=== PATIENT | female | born 1935 | race Caucasian/White ===

== ENCOUNTER 2019-08-16 21:10 | Emergency (ER) | payer OTHER, MEDICARE ==
[2019-08-16 22:32] LABS: Absolute Lymphocytes (CBC) 1.3 K/uL (0.7-4.9); Basophils % 0.8 % (0-1.3); Hematocrit 39.8 % (36.0-45.0); Lymphocytes % 16.2 % (15.3-44.8); MPV 9.4 fL (7.6-11.3); RBC Red Blood Cell Count 4.09 M/uL (3.86-4.86)
[2019-08-16 22:39] LABS: Potassium 4.1 mmol/L (3.5-5.1)
--- NOTE | 2019-08-16 23:03 | ER ---
Nurse's Notes [facility] Name: Mercy Goins Age: 84 yrs Sex: Female : 1935 Arrival Date: 08/16/2019 Time: 21:12 Bed 17 Private MD: Diagnosis: Cough Presentation: 08/16 21:17 Presenting complaint: states: "She's been coughing up phlegm since 7 this aj1 afternoon and it has not stopped since, and its really thick" Denies fever. Transition of care: patient was not received from another setting of care. Onset of symptoms was August 16, 2019. Risk Assessment: Do you want to hurt yourself or someone else? Patient reports no desire to harm self or others. Initial Sepsis Screen: Does the patient meet any 2 criteria? No. Patient's initial sepsis screen is negative. Does the patient have a suspected source of infection? Yes: Productive cough/pneumonia. Care prior to arrival: None. 21:17 Method Of Arrival: Ambulatory aj1 21:17 Acuity: MARCELA 3 aj1 Triage Assessment: 21:20 General: Appears in no apparent distress. comfortable, Behavior is calm, cooperative, aj1 appropriate for age. Pain: Denies pain. Neuro: Level of Consciousness is awake, alert, obeys commands. Cardiovascular: Patient's skin is warm and dry. Respiratory: Reports cough that is productive, Airway is patent Respiratory effort is even, unlabored, Respiratory pattern is regular, symmetrical. Historical: - Allergies: 21:20 No Known Allergies; aj1 - Home Meds: 21:20 Carbidopa-Levodopa Oral [Active]; amantadine HCl Oral [Active]; Clonazepam Oral aj1 [Active]; Fosamax Oral [Active]; - PMHx: 21:20 Parkinsons; Deep brain stimulator; breast cancer; aj1 - PSHx: 21:20 Mastectomy; aj1 - Immunization history:: Adult Immunizations up to date. - Social history:: Smoking status: Patient/guardian denies using tobacco. - Ebola Screening: : Patient denies travel to an Ebola-affected area in the 21 days before illness onset. - Family history:: not pertinent. - Hospitalizations: : Patient was recently seen at. Screenin:30 Fall Risk None identified. 08/17 02:34 Abuse screen: Denies threats or abuse. Denies injuries from another. Nutritional wh screening: No deficits noted. Tuberculosis screening: No symptoms or risk factors identified. Assessment: 08/16 21:30 General: Appears in no apparent distress. Behavior is calm, cooperative, appropriate wh for age. Pain: Denies pain. Neuro: Level of Consciousness is awake, alert, obeys commands, Oriented to person, place, time, situation, Appropriate for age. Cardiovascular: Heart tones S1 S2. Respiratory: Airway is patent Respiratory effort is even, unlabored, Respiratory pattern is regular, symmetrical, Breath sounds are clear bilaterally. Parent/caregiver reports the patient having cough that is non-productive. GI: Abdomen is flat, non-distended. : No signs and/or symptoms were reported regarding the genitourinary system. EENT: No signs and/or symptoms were reported regarding the EENT system. Derm: Skin is intact, is healthy with good turgor, Skin is pink, warm \\T\\ dry. normal. Musculoskeletal: Circulation, motion, and sensation intact. 22:50 Reassessment: Patient appears in no apparent distress at this time. No changes from previously documented assessment. Patient and/or family updated on plan of care and expected duration. Pain level reassessed. Patient is alert, oriented x 3, equal unlabored respirations, skin warm/dry/pink. Vital Signs: 21:20 BP 140 / 99; Pulse 76; Resp 18; Temp 97.7(TE); Pulse Ox 97% on R/A; Weight 74.84 kg aj1 (R); Height 5 ft. 6 in. (167.64 cm) (R); Pain 0/10; 22:45 BP 138 / 88; Pulse 74; Resp 18; Pulse Ox 99% on R/A; wh 21:20 Body Mass Index 26.63 (74.84 kg, 167.64 cm) aj1 ED Course: 21:12 Patient arrived in ED. ds1 21:18 Triage completed. aj1 21:20 Arm band placed on Patient placed in an exam room. aj1 21:22 Katelynn Motley is Primary Nurse. 21:28 Wayne Virgen MD is Attending Physician. rn 21:30 Patient has correct armband on for positive identification. Bed in low position. Call light in reach. Side rails up X 1. Pulse ox on. NIBP on. 21:44 Radiology exam delayed due to lab results not completed at this time. (BUN/Creatinine). sj 21:54 XRAY Chest Pa And Lat (2 Views) In Process Unspecified. EDMS 22:25 Inserted saline lock: 20 gauge in right antecubital area, using aseptic technique. ds4 22:27 CBC with Diff Sent. ds4 22:27 Basic Metabolic Panel Sent. ds4 23:00 No provider procedures requiring assistance completed. IV discontinued, intact, bleeding controlled, No redness/swelling at site. Administered Medications: No medications were administered Outcome: 23:02 Discharge ordered by MD. rn 23:15 Discharged to home via wheelchair, with crutches, with family. 23:15 Condition: stable 23:15 Discharge instructions given to patient, family, Instructed on discharge instructions, follow up and referral plans. POC COugh Demonstrated understanding of instructions, follow-up care, POC 23:19 Patient left the ED. Signatures: Dispatcher [employer] EDNY Socorro Ferrara RN RN aj1 Jones, Susan sj Sanford, Demi ds1 Wayne Virgen MD MD rn Swanson, Donovan ds4 Katelynn Motley
--- NOTE | 2019-08-16 23:03 | EDPHYS ---
[facility] Name: Mercy Goins Age: 84 yrs Sex: Female : 1935 Arrival Date: 08/16/2019 Time: 21:12 Bed 17 Private MD: ED Physician Wayne Virgen HPI: 08/16 21:35 This 84 yrs old Female presents to ER via Ambulatory with complaints of Cough.rn 21:35 The patient or guardian reports cough. Onset: The symptoms/episode began/occurred just rn prior to arrival. Severity of symptoms: At their worst the symptoms were moderate, in the emergency department the symptoms have resolved. Modifying factors: The symptoms are alleviated by nothing, the symptoms are aggravated by nothing. Associated signs and symptoms: Pertinent negatives: chest pain. 21:43 The patient has not experienced similar symptoms in the past. Reports had bad coughing rn galilea, patient thinks happened while eating, thinks happened before eating tonight, reports coughed for a while now improved. Also reports feeling like something/fluid in back of throat. No fever. No sob or chest pain. Does not feel like choked on something. Was eating steak. . Historical: - Allergies: 21:20 No Known Allergies; aj1 - Home Meds: 21:20 Carbidopa-Levodopa Oral [Active]; amantadine HCl Oral [Active]; Clonazepam Oral aj1 [Active]; Fosamax Oral [Active]; - PMHx: 21:20 Parkinsons; Deep brain stimulator; breast cancer; aj1 - PSHx: 21:20 Mastectomy; aj1 - Immunization history:: Adult Immunizations up to date. - Social history:: Smoking status: Patient/guardian denies using tobacco. - Ebola Screening: : Patient denies travel to an Ebola-affected area in the 21 days before illness onset. - Family history:: not pertinent. - Hospitalizations: : Patient was recently seen at. ROS: 21:43 Constitutional: Negative for fever, chills, and weight loss, Eyes: Negative for injury, rn pain, redness, and discharge, Neck: Negative for injury, pain, and swelling, Cardiovascular: Negative for chest pain, palpitations, and edema, Respiratory: + cough, negative for sob Abdomen/GI: Negative for abdominal pain, nausea, vomiting, diarrhea, and constipation, MS/Extremity: Negative for injury and deformity, Skin: Negative for injury, rash, and discoloration, Neuro: Negative for headache, weakness, numbness, tingling, and seizure. Exam: 21:43 Constitutional: This is a well developed, well nourished patient who is awake, alert, rn and in no acute distress. Head/Face: Normocephalic, atraumatic. Eyes: Pupils equal round and reactive to light, extra-ocular motions intact. Lids and lashes normal. Conjunctiva and sclera are non-icteric and not injected. Cornea within normal limits. Periorbital areas with no swelling, redness, or edema. ENT: MMM, no swelling or stridor, spontaneous croaking/fluid sound from throat Neck: Trachea midline, no thyromegaly or masses palpated, and no cervical lymphadenopathy. Supple, full range of motion without nuchal rigidity, or vertebral point tenderness. No Meningismus. Cardiovascular: Regular rate and rhythm. No pulse deficits. Respiratory: Lungs have equal breath sounds bilaterally, clear to auscultation. No increased work of breathing, no retractions or nasal flaring. MS/ Extremity: Pulses equal, no cyanosis. Neurovascular intact. Full, normal range of motion. Equal circumference. Neuro: Awake and alert, GCS 15, oriented to person, place, time, and situation. Cranial nerves II-XII grossly intact. Motor strength 5/5 in all extremities. Sensory grossly intact. + coarse extremity tremor Vital Signs: 21:20 BP 140 / 99; Pulse 76; Resp 18; Temp 97.7(TE); Pulse Ox 97% on R/A; Weight 74.84 kg aj1 (R); Height 5 ft. 6 in. (167.64 cm) (R); Pain 0/10; 22:45 BP 138 / 88; Pulse 74; Resp 18; Pulse Ox 99% on R/A; wh 21:20 Body Mass Index 26.63 (74.84 kg, 167.64 cm) 1 MDM: 21:28 Patient medically screened. rn 23:01 Differential Diagnosis: Upper Respiratory Infection Sinusitis Pharyngitis Allergic rn Rhinitis Viral Syndrome Pneumonia Other swelling. Data reviewed: vital signs, nurses notes, lab test result(s), radiologic studies, and as a result, I will discharge patient. Counseling: I had a detailed discussion with the patient and/or guardian regarding: the historical points, exam findings, and any diagnostic results supporting the discharge/admit diagnosis, lab results, radiology results, the need for outpatient follow up, to return to the emergency department if symptoms worsen or persist or if there are any questions or concerns that arise at home. Response to treatment: the patient's symptoms have resolved after treatment, the patient's condition has returned to base line, the patient is now symptom free, patient is well hydrated. and as a result, I will discharge patient. Special discussion: I discussed with the patient/guardian in detail that at this point there is no indication for admission to the hospital. It is understood, however, that if the symptoms persist or worsen the patient needs to return immediately for re-evaluation. ED course: Pt able to tolerate water, normal vitals, neg CXR, now declines CT neck that I recommended because she is now back to baseline and asymptomatic. Has appt at [facility] in AM. States is ready to go. . 08/16 21:43 Order name: CBC with Diff; Complete Time: 22:45 rn 08/16 21:43 Order name: Basic Metabolic Panel; Complete Time: 22:45 rn 08/16 21:35 Order name: XRAY Chest Pa And Lat (2 Views) rn 08/16 21:43 Order name: IV Start; Complete Time: 22:17 rn Administered Medications: No medications were administered Disposition: 08/16/19 23:02 Discharged to Home. Impression: Cough. - Condition is Stable. - Discharge Instructions: Cough, Adult. - Medication Reconciliation Form, Thank You Letter, Antibiotic Education, Prescription Opioid Use form. - Follow up: Private Physician; When: As needed; Reason: Recheck today's complaints, Re-evaluation by your physician. - Problem is new. - Symptoms have improved. Signatures: Dispatcher [employer] EDSocorro Fried RN RN aj1 Wayne Virgen MD MD rn Habalo, Winsy wh Corrections: (The following items were deleted from the chart) 23:19 23:02 08/16/2019 23:02 Discharged to Home. Impression: Cough. Condition is Stable. wh Forms are Medication Reconciliation Form, Thank You Letter, Antibiotic Education, Prescription Opioid Use. Follow up: Private Physician; When: As needed; Reason: Recheck today's complaints, Re-evaluation by your physician. Problem is new. Symptoms have improved. rn
--- NOTE | 2019-08-16 23:10 | RAD REPORT ---
EXAM DESCRIPTION: RAD - Chest Pa And Lat (2 Views) - 08/16/2019 9:56 pm CLINICAL HISTORY: COUGH Chest pain. COMPARISON: No comparisons FINDINGS: The lungs are hyperexpanded compatible with COPD. The heart is upper limit of normal in si ze. Right-sided neurostimulator device noted. IMPRESSION: COPD.
[2019-08-16 23:30] VITALS: BP 140/99; TEMP 97.7; O2SAT 97
== END 2019-08-16 23:19 | disposition home or self-care (01) ==
LOC: ER 21:10
DX: R05 Cough (principal); G20 Parkinson's disease; Z85.3 Personal history of malignant neoplasm of breast
CPT/HCPCS: 36415; 71046; 80048; 85025; 99284

== ENCOUNTER 2019-12-16 16:29 | Emergency (ER) | payer OTHER, MEDICARE ==
[2019-12-16] MEDS ORDERED: hydrOXYzine HCL 25 MG TAB ONE (17:51)
[2019-12-16 18:10] LABS: Absolute Lymphocytes (CBC) 0.7 K/uL (0.7-4.9); Basophils % 0.3 % (0-1.3); Hematocrit 39.4 % (36.0-45.0); Lymphocytes % 7.1 % (15.3-44.8); MPV 9.4 fL (7.6-11.3); RBC Red Blood Cell Count 4.03 M/uL (3.86-4.86)
[2019-12-16 18:28] LABS: Albumin 2.9 g/dL (3.4-5.0); Bilirubin Direct 0.2 mg/dL (0-0.2); Bilirubin Total 0.8 mg/dL (0.2-1.0); Protein, Total 6.9 g/dL (6.4-8.2)
--- NOTE | 2019-12-16 19:20 | ER ---
Nurse's Notes [facility] Name: Mercy Goins Age: 84 yrs Sex: Female : 1935 Arrival Date: 12/16/2019 Time: 16:32 Bed 15 Private MD: Carl Dennison T Diagnosis: Rash and other nonspecific skin eruption;Pruritus Presentation: 12/15 16:46 Chief complaint: Patient states: i just recently had a breast lymphectomy, August 28 and i had to take radiation after that then 2 weeks after radiation i was supposed to start this medication, and i dont know if its the medicine or if i have poison deshaun on my left arm and right arm and legs and back. and it itches constantly, the only time i get relief is when i fall asleep. Coronavirus screen: The patient has NOT traveled to a country currently being monitored by the CDC within the last 14 days. Ebola Screen: Patient denies travel to an Ebola-affected area in the 21 days before illness onset. Initial Sepsis Screen: Does the patient meet any 2 criteria? No. Patient's initial sepsis screen is negative. Does the patient have a suspected source of infection? No. Patient's initial sepsis screen is negative. Risk Assessment: Do you want to hurt yourself or someone else? Patient reports no desire to harm self or others. 16:46 Method Of Arrival: Wheelchair tw2 16:46 Acuity: MARCELA 4 tw2 16:50 Chief complaint: Patient states: the medicine is anastrozole that i started for after tw2 the radiation. 19:15 Onset of symptoms is unknown. Triage Assessment: 16:50 General: Appears in no apparent distress. well groomed, Behavior is calm, cooperative, tw2 appropriate for age. Pain: Denies pain. Derm: Reports increased itching. Historical: - Allergies: 16:51 No Known Allergies; tw2 - Home Meds: 16:51 amantadine HCl Oral [Active]; Carbidopa-Levodopa Oral [Active]; Clonazepam Oral tw2 [Active]; Fosamax Oral [Active]; - PMHx: 16:51 breast cancer; deep brain stimulator; Parkinsons; tw2 - PSHx: 16:51 Mastectomy; tw2 - Immunization history:: Adult Immunizations. - Social history:: Smoking status: . Screenin:07 Abuse screen: Denies threats or abuse. Denies injuries from another. Nutritional aj1 screening: No deficits noted. Tuberculosis screening: No symptoms or risk factors identified. 19:15 Fall Risk Gait- Weak (10 pts.). wh Assessment: 18:07 General: Appears in no apparent distress. uncomfortable, Behavior is calm, cooperative, aj1 appropriate for age. Pain: Denies pain. Neuro: Level of Consciousness is awake, alert, obeys commands, Oriented to person, place, time, situation. Cardiovascular: Patient's skin is warm and dry. Respiratory: Airway is patent Respiratory effort is even, unlabored, Respiratory pattern is regular, symmetrical. GI: No signs and/or symptoms were reported involving the gastrointestinal system. : No signs and/or symptoms were reported regarding the genitourinary system. EENT: No signs and/or symptoms were reported regarding the EENT system. Derm: Rash noted that is itchy, red, on face, right arm, left arm and neck. Musculoskeletal: No signs and/or symptoms reported regarding the musculoskeletal system. Circulation, motion, and sensation intact. 19:15 Reassessment: Patient appears in no apparent distress at this time. Patient and/or wh family updated on plan of care and expected duration. Pain level reassessed. Patient is alert, oriented x 3, equal unlabored respirations, skin warm/dry/pink. Patient states feeling better. Patient states symptoms have improved. Vital Signs: 16:46 BP 102 / 65; Pulse 98; Resp 17; Temp 98.2(TE); Pulse Ox 97% on R/A; Weight 76.66 kg tw2 (R); Height 5 ft. 8 in. (172.72 cm); Pain 0/10; 19:30 BP 105 / 70; Pulse 84; Resp 18; Pulse Ox 97% on R/A; wh 16:46 Body Mass Index 25.70 (76.66 kg, 172.72 cm) tw2 ED Course: 16:32 Patient arrived in ED. ag5 16:32 Carl Dennison MD is Private Physician. ag5 16:50 Triage completed. tw2 16:50 Arm band placed on. tw2 16:58 Socorro Ferrara, [place] is Primary Nurse. aj1 17:00 Nydia Vega FNP-C is PHCP. snw 17:00 Wayne Virgen MD is Attending Physician. [facility] 17:55 Initial lab(s) drawn, by me, sent to lab. Inserted saline lock: 20 gauge in left aj antecubital area, using aseptic technique. Blood collected. 18:07 Patient has correct armband on for positive identification. Bed in low position. Call aj1 light in reach. Side rails up X 1. 18:07 No provider procedures requiring assistance completed. [facility] 19:44 IV discontinued, intact, bleeding controlled, No redness/swelling at site. Administered Medications: 18:05 Drug: Atarax 50 mg Route: PO; [facility] 19:45 Follow up: Response: No adverse reaction; Marked relief of symptoms Outcome: 19:19 Discharge ordered by . [facility] 19:43 Discharged to home ambulatory. 19:43 Condition: stable 19:43 Discharge instructions given to patient, family, Instructed on discharge instructions, follow up and referral plans. medication usage, POC Demonstrated understanding of instructions, follow-up care, medications, POC Prescriptions given X 1. 19:45 Patient left the ED. Signatures: Socorro Ferrara, RN RN aj1 Nydia Vega, PASTRY BAKER-C PASTRY BAKER-Csnw Yulia Soares, RN RN tw2 Katelynn Motley Damian Obrien ag5
--- NOTE | 2019-12-16 19:21 | EDPHYS ---
Physician Documentation [facility] Name: Mercy Goins Age: 84 yrs Sex: Female : 1935 Arrival Date: 12/16/2019 Time: 16:32 Bed 15 Private MD: Carl Dennison T ED Physician Wayne Virgen HPI: 12/15 19:22 This 84 yrs old Female presents to ER via Wheelchair with complaints of Rash. snw 19:22 The patient's rash thought to be caused by an unknown cause. The rash is located on the snw body diffusely. The rash can be described as macular, papular. Onset: The symptoms/episode began/occurred suddenly, 3 day(s) ago, and became persistent. Associated signs and symptoms: Pertinent positives: itching. Severity of symptoms: At their worst the symptoms were moderate severe in the emergency department the symptoms are unchanged. Treatment given at home: Benadryl. The patient has not experienced similar symptoms in the past. The patient has not recently seen a physician. Pt dx left breast ca 9 years ago, stage 0. 08/28/19 dx Stage 1 in same breast, Radiation therapy ended in mid Oct. Pt on Testosterone melo medication. Broke out in rash 3 days ago.. Historical: - Allergies: 16:51 No Known Allergies; tw2 - Home Meds: 16:51 amantadine HCl Oral [Active]; Carbidopa-Levodopa Oral [Active]; Clonazepam Oral tw2 [Active]; Fosamax Oral [Active]; - PMHx: 16:51 breast cancer; deep brain stimulator; Parkinsons; tw2 - PSHx: 16:51 Mastectomy; tw2 - Immunization history:: Adult Immunizations. - Social history:: Smoking status: . ROS: 17:52 Constitutional: Negative for fever, chills, and weight loss, Eyes: Negative for injury, snw pain, redness, and discharge, ENT: Negative for injury, pain, and discharge, Neck: Negative for injury, pain, and swelling, Cardiovascular: Negative for chest pain, palpitations, and edema, Respiratory: Negative for shortness of breath, cough, wheezing, and pleuritic chest pain, Abdomen/GI: Negative for abdominal pain, nausea, vomiting, diarrhea, and constipation, Back: Negative for injury and pain, : Negative for injury, bleeding, discharge, and swelling, MS/Extremity: Negative for injury and deformity, Neuro: Negative for headache, weakness, numbness, tingling, and seizure, Psych: Negative for depression, anxiety, suicide ideation, homicidal ideation, and hallucinations. 17:52 Skin: Positive for swelling, diffusely. Exam: 17:52 Constitutional: This is a well developed, well nourished patient who is awake, alert, snw and in no acute distress. Head/Face: Normocephalic, atraumatic. Eyes: Pupils equal round and reactive to light, extra-ocular motions intact. Lids and lashes normal. Conjunctiva and sclera are non-icteric and not injected. Cornea within normal limits. Periorbital areas with no swelling, redness, or edema. ENT: Nares patent. No nasal discharge, no septal abnormalities noted. Tympanic membranes are normal and external auditory canals are clear. Oropharynx with no redness except on small papule to midline posterior palate, no swelling, or masses, exudates, or evidence of obstruction, uvula midline. Mucous membranes moist. Neck: Trachea midline, no thyromegaly or masses palpated, and no cervical lymphadenopathy. Supple, full range of motion without nuchal rigidity, or vertebral point tenderness. No Meningismus. Chest/axilla: Normal chest wall appearance and motion. Nontender with no deformity. No lesions are appreciated. Cardiovascular: Regular rate and rhythm with a normal S1 and S2. No gallops, murmurs, or rubs. Normal PMI, no JVD. No pulse deficits. Respiratory: Lungs have equal breath sounds bilaterally, clear to auscultation and percussion. No rales, rhonchi or wheezes noted. No increased work of breathing, no retractions or nasal flaring. Abdomen/GI: Soft, non-tender, with normal bowel sounds. No distension or tympany. No guarding or rebound. No evidence of tenderness throughout. Back: No spinal tenderness. No costovertebral tenderness. Full range of motion. Skin: Warm, dry with normal turgor. Normal color with confluent rash, no lesions, and no evidence of cellulitis. +pruritis MS/ Extremity: Pulses equal, no cyanosis. Neurovascular intact. Full, normal range of motion. Neuro: Awake and alert, GCS 15, oriented to person, place, time, and situation. Cranial nerves II-XII grossly intact. Motor strength 5/5 in all extremities. Sensory grossly intact. Cerebellar exam normal. Normal gait. Psych: Awake, alert, with orientation to person, place and time. Behavior, mood, and affect are within normal limits. Vital Signs: 16:46 BP 102 / 65; Pulse 98; Resp 17; Temp 98.2(TE); Pulse Ox 97% on R/A; Weight 76.66 kg tw2 (R); Height 5 ft. 8 in. (172.72 cm); Pain 0/10; 19:30 BP 105 / 70; Pulse 84; Resp 18; Pulse Ox 97% on R/A; wh 16:46 Body Mass Index 25.70 (76.66 kg, 172.72 cm) tw2 MDM: 17:04 Patient medically screened. snw 19:22 Data reviewed: vital signs, nurses notes. Data interpreted: Pulse oximetry: on room air snw Interpretation: normal. Counseling: I had a detailed discussion with the patient and/or guardian regarding: the historical points, exam findings, and any diagnostic results supporting the discharge/admit diagnosis, lab results, the need for outpatient follow up, to return to the emergency department if symptoms worsen or persist or if there are any questions or concerns that arise at home. Special discussion: Based on the history and exam findings, there is no indication for further emergent testing or inpatient evaluation. I discussed with the patient/guardian the need to see the chemical processing equipment repairer/oncologist for further evaluation of the symptoms. 19:25 Differential diagnosis: r/o aplastic anemia. snw 19:25 Response to treatment: the patient's symptoms have resolved after treatment, itching snw resolved, rash remains. 12/15 17:33 Order name: Basic Metabolic Panel; Complete Time: 18:40 snw 12/15 17:33 Order name: CBC with Diff; Complete Time: 18:15 snw 12/15 17:33 Order name: Creatinine for Radiology; Complete Time: 18:40 snw 12/15 17:33 Order name: Hepatic Function; Complete Time: 18:40 snw 12/15 17:33 Order name: Lipase; Complete Time: 18:40 snw 12/15 17:33 Order name: Blood Culture Adult (2) snw 12/15 17:33 Order name: IV Saline Lock; Complete Time: 18:06 snw 12/15 17:33 Order name: Labs collected and sent; Complete Time: 18:06 snw Administered Medications: 18:05 Drug: Atarax 50 mg Route: PO; aj1 19:45 Follow up: Response: No adverse reaction; Marked relief of symptoms Disposition: 12/16 10:08 Co-signature as Attending Physician, Wayne Virgen MD. rn Disposition: 12/16/19 19:19 Discharged to Home. Impression: Rash and other nonspecific skin eruption, Pruritus. - Condition is Stable. - Discharge Instructions: Rash. - Prescriptions for Vistaril 25 mg Oral capsule - take 1 capsule by ORAL route 3 times per day as needed for itching; 30 capsule. - Medication Reconciliation Form, Thank You Letter, Antibiotic Education, Prescription Opioid Use form. - Follow up: Emergency Department; When: As needed; Reason: Worsening of condition. Follow up: Private Physician; When: 1 - 2 days; Reason: Recheck today's complaints, Continuance of care, Re-evaluation by your physician. Signatures: Dispatcher [employer] EDMS Socorro Ferrara RN RN aj1 Nydia Vega, ARMORED VEHICLE OFFICER-C ARMORED VEHICLE OFFICER-Csnw Wayne Virgen MD MD rn Wise, Tara, RN RN tw2 Katelynn Motley Corrections: (The following items were deleted from the chart) 12/15 17:55 17:52 Constitutional: This is a well developed, well nourished patient who is awake, snw alert, and in no acute distress. Head/Face: Normocephalic, atraumatic. Eyes: Pupils equal round and reactive to light, extra-ocular motions intact. Lids and lashes normal. Conjunctiva and sclera are non-icteric and not injected. Cornea within normal limits. Periorbital areas with no swelling, redness, or edema. ENT: Nares patent. No nasal discharge, no septal abnormalities noted. Tympanic membranes are normal and external auditory canals are clear. Oropharynx with no redness, swelling, or masses, exudates, or evidence of obstruction, uvula midline. Mucous membranes moist. Neck: Trachea midline, no thyromegaly or masses palpated, and no cervical lymphadenopathy. Supple, full range of motion without nuchal rigidity, or vertebral point tenderness. No Meningismus. Chest/axilla: Normal chest wall appearance and motion. Nontender with no deformity. No lesions are appreciated. Cardiovascular: Regular rate and rhythm with a normal S1 and S2. No gallops, murmurs, or rubs. Normal PMI, no JVD. No pulse deficits. Respiratory: Lungs have equal breath sounds bilaterally, clear to auscultation and percussion. No rales, rhonchi or wheezes noted. No increased work of breathing, no retractions or nasal flaring. Abdomen/GI: Soft, non-tender, with normal bowel sounds. No distension or tympany. No guarding or rebound. No evidence of tenderness throughout. Back: No spinal tenderness. No costovertebral tenderness. Full range of motion. Skin: Warm, dry with normal turgor. Normal color with confluent rash, no lesions, and no evidence of cellulitis. +pruritis MS/ Extremity: Pulses equal, no cyanosis. Neurovascular intact. Full, normal range of motion. Neuro: Awake and alert, GCS 15, oriented to person, place, time, and situation. Cranial nerves II-XII grossly intact. Motor strength 5/5 in all extremities. Sensory grossly intact. Cerebellar exam normal. Normal gait. Psych: Awake, alert, with orientation to person, place and time. Behavior, mood, and affect are within normal limits. snw 19:45 19:19 12/16/2019 19:19 Discharged to Home. Impression: Rash and other nonspecific skin wh eruption; Pruritus. Condition is Stable. Forms are Medication Reconciliation Form, Thank You Letter, Antibiotic Education, Prescription Opioid Use. Follow up: Emergency Department; When: As needed; Reason: Worsening of condition. Follow up: Private Physician; When: 1 - 2 days; Reason: Recheck today's complaints, Continuance of care, Re-evaluation by your physician. snw
[2019-12-16 19:54] VITALS: TEMP 98.2; O2SAT 97
[2019-12-16 19:55] VITALS: BP 105/70
== END 2019-12-16 19:45 | disposition home or self-care (01) ==
LOC: ER 16:29
DX: R21 Rash and other nonspecific skin eruption (principal); G20 Parkinson's disease; Z85.3 Personal history of malignant neoplasm of breast
CPT/HCPCS: 36415; 80048; 80076; 83690; 85025; 87040; 99284

== ENCOUNTER 2022-04-19 17:17 | Emergency (ER) | payer OTHER, MEDICARE ==
--- NOTE | 2022-04-19 18:44 | RAD REPORT ---
EXAM DESCRIPTION: RAD - Chest Single View - 04/19/2022 6:32 pm CLINICAL HISTORY: COVID+ Chest pain. COMPARISON: Chest Pa And Lat (2 Views) dated 08/16/2019 FINDINGS: Portable technique limits examination quality. The lungs are mildly emphysematous but grossly clear. The heart is upper limit of normal in size. Tra ce left pleural effusion. No displaced fractures.Stimulator device present. IMPRESSION: No acute intrathoracic process suspected.
--- NOTE | 2022-04-19 19:04 | EDPHYS ---
Physician Documentation [facility] Name: Mercy Goins Age: 87 yrs Sex: Female : 1935 Arrival Date: 04/19/2022 Time: 17:18 Bed 25 Private MD: ED Physician Cy Valencia HPI: 04/19 17:33 This 87 yrs old Female presents to ER via Ambulatory with complaints of covid+. en 17:33 [id number] female with history of Parkinson's, hypertension impaired presents en to the ED after testing positive for COVID at home. Her is in the ICU for complications of COVID and she was wanting to get checked out. She reports generalized malaise and fatigue. She reports decreased p.o. intake but normal urination. No fevers, chills, nausea, vomiting, diarrhea. No dysuria, hematuria. She denies chest pain, shortness of breath or dyspnea on exertion.. Historical: - Allergies: 17:25 No Known Allergies; jb4 - Home Meds: 17:25 amantadine HCl Oral [Active]; Carbidopa-Levodopa Oral [Active]; Clonazepam Oral jb4 [Active]; anastrozole 1 mg oral tab [Active]; amantadine HCl 100 mg Oral tab [Active]; 19:28 Fosamax Oral [Active]; bh1 - PMHx: 17:25 breast cancer; deep brain stimulator; Parkinsons; jb4 - Immunization history:: Adult Immunizations up to date. - Social history:: Smoking status: Patient denies any tobacco usage or history of. ROS: 17:33 Constitutional: Negative for fever, chills, and weight loss, + malaise and fatigue en 17:33 Constitutional: Positive for fatigue, malaise, Negative for body aches, chills, fever. 17:33 Cardiovascular: Negative for chest pain, edema, orthopnea, palpitations. 17:33 Respiratory: Negative for cough, orthopnea, shortness of breath, wheezing. 17:33 Abdomen/GI: Negative for abdominal pain, nausea and vomiting. 17:33 : Negative for urinary symptoms. 17:33 All other systems are negative. Exam: 17:33 Constitutional: This is a well developed, well nourished patient who is awake, alert, en and in no acute distress. 17:33 Constitutional: The patient appears in no acute distress, alert, awake. 17:33 Head/face: Exam is negative for 17:33 Eyes: Conjunctiva: normal, no exudate, no injection. 17:33 ENT: Mouth: Lips: moist, Posterior pharynx: Airway: patent. 17:33 Neck: ROM/movement: is normal, is supple. 17:33 Cardiovascular: Rate: normal, Rhythm: regular, Pulses: no pulse deficits are appreciated, Heart sounds: normal, no murmur, no rub, no gallop. 17:33 Respiratory: the patient does not display signs of respiratory distress, Respirations: normal, Breath sounds: are clear throughout, no rales, rhonchi, no stridor, no wheezing. 17:33 Neuro: Orientation: appropriate for stated age, to person, place \T\ time. Mentation: appropriate for stated age. 17:33 Psych: Behavior/mood is pleasant, cooperative, Affect is calm. Vital Signs: 17:22 BP 129 / 63; Pulse 96; Resp 16; Temp 97.7(TE); Pulse Ox 96% on R/A; Weight 77.11 kg jb4 (R); Height 5 ft. 6 in. (167.64 cm) (R); Pain 0/10; 17:49 BP 94 / 76 RA Supine (auto/reg); Pulse 84; Resp 12; Pulse Ox 97% on R/A; eh3 18:36 BP 140 / 56; Pulse 75; Resp 18; Pulse Ox 95% on R/A; eh3 19:28 BP 138 / 80; Pulse 80; Resp 18; Pulse Ox 96% on R/A; bh1 17:22 Body Mass Index 27.44 (77.11 kg, 167.64 cm) jb4 MDM: 17:19 Patient medically screened. en 17:33 Differential diagnosis: COVID +/- pneumonia. Data reviewed: vital signs, nurses notes, en radiologic studies. ED course: Patient without respiratory distress. She is understandably concerned given that her is currently in the ICU for complications of COVID. We will get a chest x-ray to rule out pneumonia and to provide additional reassurance to the patient and family.. 19:02 ED course: COVID+, CXR negative for PNA. No respiratory distress. Will d/c home. en 19:03 Patient medically screened. en 04/19 17:32 Order name: CXR XRAY; Complete Time: 19:02 en Administered Medications: No medications were administered Disposition Summary: 04/19/22 19:03 Discharge Ordered Location: Home en Problem: new en Symptoms: are unchanged en Condition: Stable en Diagnosis - COVID en Followup: en - With: Private Physician - When: As needed - Reason: Discharge Instructions: - Discharge Summary Sheet en - COVID-19 en Forms: - Medication Reconciliation Form en - Thank You Letter en - Antibiotic Education en - Prescription Opioid Use en Signatures: Dispatcher [employer] EDMilad Curiel, RN RN jb4 Carmela Veliz PA PA Kristyn Leigh RN RN bh1
--- NOTE | 2022-04-19 19:04 | ER ---
Nurse's Notes [facility] Name: Mercy Goins Age: 87 yrs Sex: Female : 1935 Arrival Date: 04/19/2022 Time: 17:18 Bed 25 Private MD: Diagnosis: COVID Presentation: 04/19 17:22 Chief complaint: Patient states: I tested positive for coivd and my is in ICU jb4 so I just wanted to get checked out. Patient's son or daughter states: She has a cough, decreased appetite, and has been sleeping more within the past few days. Coronavirus screen: Client presents with at least one sign or symptom that may indicate coronavirus-19. Standard/surgical mask placed on the client. Provider contacted for isolation considerations. Client reports previous positive COVID test result. Ebola Screen: No symptoms or risks identified at this time. Initial Sepsis Screen: Does the patient meet any 2 criteria? No. Patient's initial sepsis screen is negative. Does the patient have a suspected source of infection? No. Patient's initial sepsis screen is negative. Risk Assessment: Do you want to hurt yourself or someone else? Patient reports no desire to harm self or others. Onset of symptoms was April 19, 2022. Transition of care: patient was not received from another setting of care. 17:22 Method Of Arrival: Ambulatory jb4 17:22 Acuity: MARCELA 4 jb4 Historical: - Allergies: 17:25 No Known Allergies; jb4 - Home Meds: 17:25 amantadine HCl Oral [Active]; Carbidopa-Levodopa Oral [Active]; Clonazepam Oral jb4 [Active]; anastrozole 1 mg oral tab [Active]; amantadine HCl 100 mg Oral tab [Active]; 19:28 Fosamax Oral [Active]; bh1 - PMHx: 17:25 breast cancer; deep brain stimulator; Parkinsons; jb4 - Immunization history:: Adult Immunizations up to date. - Social history:: Smoking status: Patient denies any tobacco usage or history of. Screenin:55 Abuse screen: Denies threats or abuse. Denies injuries from another. Nutritional eh3 screening: No deficits noted. Tuberculosis screening: No symptoms or risk factors identified. Fall Risk None identified. Assessment: 17:47 General: Appears in no apparent distress. comfortable, Behavior is calm, cooperative, eh3 appropriate for age. Pain: Denies pain. Neuro: Level of Consciousness is awake, alert, obeys commands, Oriented to person, place, time, situation. Cardiovascular: Capillary refill < 3 seconds Patient's skin is warm and dry. Respiratory: Airway is patent Respiratory effort is even, unlabored. Respiratory: Reports cough that is non-productive. GI: Reports loss of appetite. : No signs and/or symptoms were reported regarding the genitourinary system. EENT: Reports nasal congestion since 5 days ago. Derm: No signs and/or symptoms reported regarding the dermatologic system. Musculoskeletal: No signs and/or symptoms reported regarding the musculoskeletal system. Vital Signs: 17:22 BP 129 / 63; Pulse 96; Resp 16; Temp 97.7(TE); Pulse Ox 96% on R/A; Weight 77.11 kg jb4 (R); Height 5 ft. 6 in. (167.64 cm) (R); Pain 0/10; 17:49 BP 94 / 76 RA Supine (auto/reg); Pulse 84; Resp 12; Pulse Ox 97% on R/A; eh3 18:36 BP 140 / 56; Pulse 75; Resp 18; Pulse Ox 95% on R/A; eh3 19:28 BP 138 / 80; Pulse 80; Resp 18; Pulse Ox 96% on R/A; bh1 17:22 Body Mass Index 27.44 (77.11 kg, 167.64 cm) jb4 ED Course: 17:18 Patient arrived in ED. am2 17:19 Carmela Veliz PA is PHCP. en 17:19 Cy Valencia MD is Attending Physician. en 17:25 Triage completed. jb4 17:25 Arm band placed on right wrist. jb4 17:55 Patient has correct armband on for positive identification. Bed in low position. Call eh3 light in reach. Side rails up X2. 17:55 No provider procedures requiring assistance completed. eh3 18:05 Kristyn Pederson, [place] is Primary Nurse. bh1 18:34 CXR XRAY In Process Unspecified. EDMS 19:27 Patient did not have IV access during this emergency room visit. bh1 Administered Medications: No medications were administered Medication: 19:28 VIS not applicable for this client. bh1 Outcome: 19:03 Discharge ordered by MD. romano 19:27 Discharged to home ambulatory. [facility] 19:27 Condition: good 19:27 Discharge instructions given to patient, family, Instructed on discharge instructions, follow up and referral plans. Demonstrated understanding of instructions, follow-up care. 19:29 Patient left the ED. [facility] Signatures: Dispatcher [employer] EDMilad Curiel, RN RN jb4 Roseann Guzman Katerina Cabrera 3 Carmela Veliz PA PA en Hicks, Barbara, RN RN [facility]
[2022-04-19 19:46] VITALS: TEMP 97.7
[2022-04-19 19:50] VITALS: BP 138/80; O2SAT 96
== END 2022-04-19 19:29 | disposition home or self-care (01) ==
LOC: ER 17:17
DX: U07.1 COVID-19 (principal); I10 Essential (primary) hypertension; G20 Parkinson's disease; Z85.3 Personal history of malignant neoplasm of breast
CPT/HCPCS: 71045; 99283

== ENCOUNTER 2022-08-16 10:13 | Emergency (ER) | payer OTHER, MEDICARE ==
--- NOTE | 2022-08-16 11:16 | RAD REPORT ---
EXAM DESCRIPTION: CT - [id number] - 08/16/2022 11:07 am CLINICAL HISTORY: Trauma, head and neck injury. fall COMPARISON: No comparisons TECHNIQUE: Axial 5 mm thick images of the head were obtained. Axial 2 mm thick images of the cervical spine were obtained with sagittal and coronal reconstruction images generated and reviewed. All CT scans are performed using dose optimization technique as appropriate and may include automated exposure control or mA/KV adjustment according to patient size. FINDINGS: CT HEAD WITHOUT CONTRAST: No acute hemorrhage, hydrocephalus or extra-axial collection is identified.Right-sided deep brain sti mulator noted.No areas of brain edema or midline shift. The paranasal sinuses and mastoids are clear.The calvarium is intact. CT CERVICAL SPINE WITHOUT CONTRAST: No fracture or subluxation.Mild mid and lower cervical degenerative changes.No prevertebral soft tiss ues swelling is identified. IMPRESSION: No acute intracranial or cervical spine findings.
--- NOTE | 2022-08-16 11:29 | EDPHYS ---
Physician Documentation [facility] Name: Mercy Goins Age: 87 yrs Sex: Female : 1935 Arrival Date: 08/16/2022 Time: 10:14 Bed 18 Private MD: ED Physician Abe Dickson HPI: 08/16 11:09 This 87 yrs old Female presents to ER via EMS with complaints of Fall Injury. snw 11:09 Details of fall: The patient fell from an upright position, while walking. Onset: The snw symptoms/episode began/occurred suddenly, just prior to arrival. Severity of symptoms: At their worst the symptoms were very mild. It is unknown whether or not the patient has had similar symptoms in the past. Historical: - Allergies: : No Known Allergies; db - Home Meds: :26 amantadine HCl Oral [Active]; amantadine HCl 100 mg Oral tab [Active]; anastrozole 1 mg db Oral tab [Active]; Carbidopa-Levodopa Oral [Active]; Fosamax Oral [Active]; Clonazepam Oral [Active]; - PMHx: 10:26 breast cancer; deep brain stimulator; Parkinsons; db - Immunization history:: Client reports receiving the 2nd dose of the Covid vaccine. - Social history:: Smoking status: Patient denies any tobacco usage or history of. - Immunization history: Last tetanus immunization: unknown. ROS: 11:08 Constitutional: Negative for fever, chills, and weight loss, Eyes: Negative for injury, snw pain, redness, and discharge, ENT: Negative for injury, pain, and discharge, Cardiovascular: Negative for chest pain, palpitations, and edema, Respiratory: Negative for shortness of breath, cough, wheezing, and pleuritic chest pain, Abdomen/GI: Negative for abdominal pain, nausea, vomiting, diarrhea, and constipation, Back: Negative for injury and pain, : Negative for injury, bleeding, discharge, and swelling, MS/Extremity: Negative for injury and deformity, Skin: Negative for injury, rash, and discoloration, Neuro: Negative for headache, weakness, numbness, tingling, and seizure. 11:08 Neck: Positive for injury or acute deformity. Exam: 11:08 Constitutional: This is a well developed, well nourished patient who is awake, alert, snw and in no acute distress. Head/Face: Normocephalic, atraumatic. Eyes: Pupils equal round and reactive to light, extra-ocular motions intact. Lids and lashes normal. Conjunctiva and sclera are non-icteric and not injected. Cornea within normal limits. Periorbital areas with no swelling, redness, or edema. ENT: Nares patent. No nasal discharge, no septal abnormalities noted. Tympanic membranes are normal and external auditory canals are clear. Oropharynx with no redness, swelling, or masses, exudates, or evidence of obstruction, uvula midline. Mucous membranes moist. Chest/axilla: Normal chest wall appearance and motion. Nontender with no deformity. No lesions are appreciated. Cardiovascular: Regular rate and rhythm with a normal S1 and S2. No gallops, murmurs, or rubs. Normal PMI, no JVD. No pulse deficits. Respiratory: Lungs have equal breath sounds bilaterally, clear to auscultation and percussion. No rales, rhonchi or wheezes noted. No increased work of breathing, no retractions or nasal flaring. Abdomen/GI: Soft, non-tender, with normal bowel sounds. No distension or tympany. No guarding or rebound. No evidence of tenderness throughout. Back: No spinal tenderness. No costovertebral tenderness. Full range of motion. Skin: Warm, dry with normal turgor. Normal color with no rashes, no lesions, and no evidence of cellulitis. MS/ Extremity: Pulses equal, no cyanosis. Neurovascular intact. Full, normal range of motion. Neuro: Awake and alert, GCS 15, oriented to person, place, time, and situation. Cranial nerves II-XII grossly intact. Motor strength 5/5 in all extremities. Sensory grossly intact. Cerebellar exam normal. Normal gait. Psych: Awake, alert, with orientation to person, place and time. Behavior, mood, and affect are within normal limits. 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 Vital Signs: 10:14 BP 145 / 57; Pulse 76; Resp 16; Temp 98.9(O); Pulse Ox 95% on R/A; Weight 74.84 kg; db Height 5 ft. 6 in. (167.64 cm); Pain 0/10; 11:32 BP 149 / 110; Pulse 82; Resp 19; Pulse Ox 96% on R/A; em6 10:14 Body Mass Index 26.63 (74.84 kg, 167.64 cm) db Isidro Coma Score: 10:29 Eye Response: spontaneous(4). Verbal Response: oriented(5). Motor Response: obeys db commands(6). Total: 15. 11:32 Eye Response: spontaneous(4). Verbal Response: oriented(5). Motor Response: obeys em6 commands(6). Total: 15. Trauma Score (Adult): 10:29 Eye Response: spontaneous(1); Verbal Response: oriented(1); Motor Response: obeys db commands(2); Systolic BP: > 89 mm Hg(4); Respiratory Rate: 10 to 29 per min(4); Halifax Score: 15; Trauma Score: 12 MDM: 10:19 Patient medically screened. snw 11:29 Data reviewed: vital signs, nurses notes. Data interpreted: Pulse oximetry: on room air snw is 95 %. Interpretation: normal. Counseling: I had a detailed discussion with the patient and/or guardian regarding: the historical points, exam findings, and any diagnostic results supporting the discharge/admit diagnosis, the presence of at least one elevated blood pressure reading (>120/80) during this emergency department visit, radiology results, the need for outpatient follow up, for definitive care, to return to the emergency department if symptoms worsen or persist or if there are any questions or concerns that arise at home. Special discussion: I have referred the patient to see his PCP for further evaluation of high blood pressure. Based on the history and exam findings, there is no indication for further emergent testing or inpatient evaluation. I discussed with the patient/guardian the need to see the primary care provider for further evaluation of the symptoms. 08/16 10:25 Order name: CT Head C Spine; Complete Time: 11:23 snw Administered Medications: No medications were administered Disposition: 17:12 Co-signature as Attending Physician, Abe TORREZ was immediately available onsite ms3 in the emergency department for consultation in the care of the patient. Disposition Summary: 08/16/22 11:28 Discharge Ordered Location: Home snw Condition: Stable snw Diagnosis - Fall on same level from slipping, tripping and stumbling with subsequent striking snw against object Followup: snw - With: Emergency Department - When: As needed - Reason: Worsening of condition Followup: snw - With: Private Physician - When: 2 - 3 days - Reason: Recheck today's complaints, Continuance of care, Re-evaluation by your physician Discharge Instructions: - Discharge Summary Sheet snw - Head Injury, Adult snw - Fall Prevention in the Home, Adult snw Forms: - Medication Reconciliation Form snw - Thank You Letter snw - Antibiotic Education snw - Prescription Opioid Use snw Signatures: Dispatcher [employer] EDMS Nydia Faust, POT OPERATOR-C POT OPERATOR-Csnw Abe Dickson DO DO ms3 Cindi Mcbride, RN RN em6 Cecile Estevez, RN RN db
--- NOTE | 2022-08-16 11:29 | ER ---
Nurse's Notes [facility] Name: Mercy Goins Age: 87 yrs Sex: Female : 1935 Arrival Date: 08/16/2022 Time: 10:14 Bed 18 Private MD: Diagnosis: Fall on same level from slipping, tripping and stumbling with subsequent striking against object Presentation: 08/16 10:14 Chief complaint: Patient states: Fall while walking to the bathroom. states normally db uses a walker but did not use one. patient is legally blind. Patient denies LOC EMS states: patient placed in c-collar for neck pain. patient complained of right hip pain and back of head pain. no visible injuries seen. No bleeding seen. 10:14 Method Of Arrival: EMS: [facility] db 10:14 Chief complaint:. Coronavirus screen: Vaccine status: Patient reports receiving the 2nd db dose of the covid vaccine. Client denies travel out of the [place] in the last 14 days. At this time, the client does not indicate any symptoms associated with coronavirus-19. Ebola Screen: Patient negative for fever greater than or equal to 101.5 degrees Fahrenheit, and additional compatible Ebola Virus Disease symptoms Patient denies exposure to infectious person. Patient denies travel to an Ebola-affected area in the 21 days before illness onset. No symptoms or risks identified at this time. Initial Sepsis Screen: Does the patient meet any 2 criteria? No. Patient's initial sepsis screen is negative. Does the patient have a suspected source of infection? No. Patient's initial sepsis screen is negative. Risk Assessment: Do you want to hurt yourself or someone else?. Onset of symptoms was August 16, 2022. 10:14 Acuity: MARCELA 3 db 10:14 Care prior to arrival: Cervical collar in place. Mechanism of Injury: Fall ground level db fall. Trauma event details: Injury occurred in the [facility]. Triage Assessment: 10:26 General: Appears in no apparent distress. Behavior is calm, cooperative, appropriate db for age. Pain: Complains of pain in back of head, left hip, back. EENT: No deficits noted. No signs and/or symptoms were reported regarding the EENT system. Neuro: No deficits noted. Level of Consciousness is awake, alert, obeys commands, Oriented to person, place, time, situation, Appropriate for age Speech is normal, Facial symmetry appears normal. Cardiovascular: No deficits noted. Respiratory: No deficits noted. GI: No deficits noted. No signs and/or symptoms were reported involving the gastrointestinal system. : No deficits noted. No signs and/or symptoms were reported regarding the genitourinary system. Derm: No deficits noted. No signs and/or symptoms reported regarding the dermatologic system. Musculoskeletal: No deficits noted. No signs and/or symptoms reported regarding the musculoskeletal system. Musculoskeletal: No signs and/or symptoms reported regarding the musculoskeletal system. Trauma Activation: Not Applicable Physician: ED Physician; Name: ; Notified At: ; Arrived At: Physician: General Surgeon; Name: ; Notified At: ; Arrived At: Physician: Radiology; Name: ; Notified At: ; Arrived At: Physician: Respiratory; Name: ; Notified At: ; Arrived At: Physician: Lab; Name: ; Notified At: ; Arrived At: Historical: - Allergies: 10:31 No Known Allergies; db - Home Meds: 10:26 amantadine HCl Oral [Active]; amantadine HCl 100 mg Oral tab [Active]; anastrozole 1 mg db Oral tab [Active]; Carbidopa-Levodopa Oral [Active]; Fosamax Oral [Active]; Clonazepam Oral [Active]; - PMHx: 10:26 breast cancer; deep brain stimulator; Parkinsons; db - Immunization history:: Client reports receiving the 2nd dose of the Covid vaccine. - Social history:: Smoking status: Patient denies any tobacco usage or history of. - Immunization history: Last tetanus immunization: unknown. Screenin:14 Fall Risk Fall in past 12 months (25 points). Ambulatory Aid- Crutches/Cane/Walker (15 em6 pts). Gait- Weak (10 pts.). Total Marc Fall Scale indicates High Risk Score (45 or more points). Fall prevention measures have been instituted. Side Rails Up X 2 Placed Close to Nursing Station Frequent Obs/Assessments Occuring Family Present and informed to notify staff if the need to leave the bedside As available patient and family educated on Fall Prevention Program and Strategies. 10:14 Nutritional screening: No deficits noted. em6 10:29 Abuse screen: Denies threats or abuse. Denies injuries from another. Tuberculosis db screening: No symptoms or risk factors identified. Primary Survey: 10:29 NO uncontrolled hemorrhage observed. A: The client is awake and alert. The airway is db patent. The client is alert. Airway: patent, No supplemental oxygen in use on arrival. Breathing/Chest: Spontaneous respiratory effort, equal unlabored respirations, breath sounds clear bilaterally, regular pattern, symmetrical chest rise and fall. Respiratory effort: spontaneous, unlabored, Breath sounds: clear, bilaterally. Respiratory pattern: regular, Chest inspection: symmetrical rise and fall of the chest. Circulation: No external hemorrhage present. Regular and strong central pulse, skin warm/dry/normal color. Disability Client is alert. Exposure/Environment: A warming method has been applied: A warm blanket has been provided to the patient. Reassessment Alertness and Airway: Awake and alert. The airway is patent. Breathing: Spontaneous respiratory effort, equal unlabored respirations, breath sounds clear bilaterally, regular pattern with symmetrical chest rise and fall. Circulation: No external hemorrhage noted. Regular and strong central pulse, skin warm/dry/normal color. Assessment: 10:45 Reassessment: see triage assessment. em6 11:45 Reassessment: No changes from previously documented assessment. Patient and/or family em6 updated on plan of care and expected duration. Pain level reassessed. Patient is alert, oriented x 3, equal unlabored respirations, skin warm/dry/pink. Vital Signs: 10:14 BP 145 / 57; Pulse 76; Resp 16; Temp 98.9(O); Pulse Ox 95% on R/A; Weight 74.84 kg; db Height 5 ft. 6 in. (167.64 cm); Pain 0/10; 11:32 BP 149 / 110; Pulse 82; Resp 19; Pulse Ox 96% on R/A; em6 10:14 Body Mass Index 26.63 (74.84 kg, 167.64 cm) db Isidro Coma Score: 10:29 Eye Response: spontaneous(4). Verbal Response: oriented(5). Motor Response: obeys db commands(6). Total: 15. 11:32 Eye Response: spontaneous(4). Verbal Response: oriented(5). Motor Response: obeys em6 commands(6). Total: 15. Trauma Score (Adult): 10:29 Eye Response: spontaneous(1); Verbal Response: oriented(1); Motor Response: obeys db commands(2); Systolic BP: > 89 mm Hg(4); Respiratory Rate: 10 to 29 per min(4); Isidro Score: 15; Trauma Score: 12 ED Course: 10:14 Patient arrived in ED. eb 10:14 Thermoregulation: warm blanket given to patient. em6 10:19 Nydia Faust FNP-C is [facility]. snw 10:19 Abe Dickson DO is Attending Physician. snw 10:26 Triage completed. db 10:26 Arm band placed on right wrist. Patient placed in an exam room. db 10:29 Patient has correct armband on for positive identification. Bed in low position. Call db light in reach. Side rails up X 1. 10:29 Patient maintains SpO2 saturation greater than 95% on room air. db 10:42 Cindi Mcbride, RN is Primary Nurse. em6 11:09 CT Head C Spine In Process Unspecified. EDMS 11:54 No provider procedures requiring assistance completed. Patient did not have IV access em6 during this emergency room visit. Administered Medications: No medications were administered Medication: 10:14 VIS not applicable for this client. em6 Intake: 11:54 PO: 10ml (Water); Total: 10ml. em6 Output: 11:54 Urine: 150ml (Voided); Total: 150ml. em6 Outcome: 11:28 Discharge ordered by . snw 11:54 Discharged to home em6 11:54 Condition: stable 11:54 Discharge instructions given to patient, significant other, Instructed on discharge instructions, follow up and referral plans. Demonstrated understanding of instructions, follow-up care. 12:15 Patient's length of stay was not longer than 2 hours. db 12:15 Patient left the ED. em6 Signatures: Dispatcher [employer] EDMS Nydia Faust FNP-C TUBE AND ROD STRAIGHTENER-Csnw Carmela Sood eb Cindi Mcbride, RN RN em6 Cecile Estevez RN RN db Corrections: (The following items were deleted from the chart) 10:47 10:46 Thermoregulation: warm blanket given to patient. em6 em6
[2022-08-16 13:08] VITALS: TEMP 98.9
[2022-08-16 13:10] VITALS: BP 149/110; O2SAT 96
== END 2022-08-16 12:15 | disposition home or self-care (01) ==
LOC: ER 10:13
DX: Z04.3 Encounter for examination and observation following other accident (principal); W01.10XA Fall on same level from slipping, tripping and stumbling with subsequent striking against unspecified object, initial encounter
CPT/HCPCS: 70450; 72125; 99284